=== PATIENT | female | born 1970 | race Caucasian/White ===

== ENCOUNTER 2017-09-07 08:20 | Day surgery (SDC) | payer OTHER ==
[~2017-09-07] VITALS: Ht 165.1 cm; Wt 70.8 kg
[~2017-09-07 08:20] MED LIST: ENSKYCE1 EACH PO; ZYRTEC-D TABLE1 EACH PO
--- NOTE | 2017-09-07 08:20 | NUR ---
PT ARRIVED EARLY REPORTING 03/21 "MIGRAIN" PAIN. MD CONSULTED, MD REFERED THIS RN TO ORCHID HAND. ORCHID HAND AT BEDSIDE ASSESSING PT. ORCHID HAND ORDERS PAIN MEDICATION TO BE GIVEN NOW.
--- NOTE | 2017-09-07 08:30 | NUR ---
PTS BOYFRIEND CALLED DAY SURGERY REPORTING THAT PT HAS "A BAD MIGRAINE" AND ASKING WHAT SHOULD BE DONE. PT ADVISED TO COME IN EARLY TO BE ASSESSED, OR CALL TO CANCIL HER SURGERY.
[2017-09-07] MEDS ORDERED: TYLENOL325 MG PO (08:46)
--- NOTE | 2017-09-07 08:50 | NUR ---
[facility] ARRIVED FROM [facility]. GIVEN ORDERED (SEE MAR). 5 MINUTES LATER PT APPEARS MORE RELAXED AND REPORTS IMPROVING PAIN. BED RAILS UP. FATHER AND BOYFRIEND AT BEDSIDE. PT MAINTAINING O2 SATURATION OF 100% ON ROOM AIR.
--- NOTE | 2017-09-07 10:54 | NUR ---
09/07/17 1054 Nishi Gonzalez 1039-PATIENT ARRIVED TO PACU ON 6L MASK O2 SAT 98% PATIENT NONAROUSABLE ORAL AIRWAY IN PLACE. SR. INCISION AREA SMALL AMT OF DRAINAGE NO DRESSING STITCHES. 1043-PATIENT AROUSING ORAL AIRWAY REMOVED ON 6L MASK O2 SAT 98% 1050-WEANED TO RA O2 SAT 98% REPORTS MIGRAINE GOING AWAY. DENIES PAIN OR NAUSEA.
--- NOTE | 2017-09-07 11:24 | NUR ---
PT RETUREND FROM PACU. PT DENIES PAIN AND NAUSEA. FAMILY AT BEDSIDE. BED RAILS UP, CALL LIGHT WITHIN REACH. PT TOLERATING PO FLUIDS. KENNA GORDON.
[2017-09-07] MEDS ORDERED: NORCO 5-325 TA1 EACH PO (11:39)
[2017-09-07] MEDS ORDERED: MAXALT5 MG PO (11:40)
--- NOTE | 2017-09-07 12:13 | OR ---
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 PROCEDURE: Excision of pilar cyst. ESTIMATED BLOOD LOSS: Minimal. INDICATIONS: rAiel is a 46-year-old female, who at age 4 had fallen and hit her head on one of her bed rails. Then in the last year or 2, she and her hairdresser noticed a swollen area next to the scar. It became raised and swollen. It did grew to the size of a quarter and it finally burst open. All the white cottage cheese-looking material came out. It settled down for a while and of course, is now coming back. It is now about the size of a marble. She asked her primary care provider to look at it. She was then asked to see me as a general surgeon. In the office, Ariel and I were able to locate the pilar cyst. We could see the scar. There are no hair follicles in the skin overlying the cyst. I explained to Ariel these notoriously bleed during dissection, it is very difficult to see the cyst wall. I explained to Ariel it is extremely important to get the entire cyst wall, otherwise they do recur. Also, when they have been incised and drained previously or other next to old scar and so forth, they are very difficult to get out. Blunt dissection in that case is almost always useless. We gently have to use our needle tip cautery. Consequently, we decided to do this over at the hospital in the OR with good lighting and our needle-tip cautery and our nurses to help with exposure and suction. I explained to Ariel the nature of a pilar cyst and the cyst wall and the concept of the sebum. She understands the entire cyst must be removed or they tend to recur. She understands there is risk to the surgery including, but not limited to bleeding, infection, scarring, change in contour of the skin, and recurrent cyst in the same or other locations. She had expressed understanding and wished to proceed. PROCEDURE NOTE: I met with Ariel and her in the preop area. Ariel was able to easily directed us Electronically Signed By: HUGO KIRAN MD 09/07/17 1213 PATIENT NAME: ARIEL MOORE OPERATIVE REPORT DATE OF : 70 PHYSICIAN: HUGO KIRAN MD REPORT #: [id number] REPORT IS CONFIDENTIAL AND NOT TO BE RELEASED WITHOUT AUTHORIZATION [facility] [address], [place] [address] Signed to the pilar cyst on the left posterior parietal scalp. We marked that appropriately. After this, Ariel was taken into our operating room and placed in the supine position under general endotracheal tube anesthesia. She was given preoperative antibiotics along with subcutaneous heparin. SCDs were utilized. After this, the left parietal scalp was prepped and draped in the usual sterile fashion. She has no hair over the cyst and therefore there was no need to shave or cut any of the hair at the time of the surgery. I injected local anesthetic in and around the lesion. A linear incision was made over the lesion very carefully with a #15 blade knife and we immediately encountered the pilar cyst. As is common in this recurrent cyst, the overlying skin is extremely thin, a millimeter or so at most in thickness. It took a few minutes to bluntly dissect both posteriorly and anteriorly. We then had to use the needle-tip cautery very carefully to separate the pilar cyst from the overlying skin on both sides. We then went down and around the pilar cyst and removed the entire cyst and cyst wall with the help of the needle tip cautery. It was passed off the field for pathology department. After this, the wound was irrigated and suctioned out until clear. Her skin was far too thin to use any type of subcuticular stitch. Consequently, we brought the skin edges together with interrupted simple 3-0 nylon suture. We simply left the wound open to air. No dressing, no ointment. After this, Ariel was awakened from her anesthesia, extubated in the OR, and taken to recovery room in stable condition. Ariel tolerated the procedure quite well. Hugo Kiran MD ALB/MODL /[id number] cc: Edgar Sood MD Electronically Signed By: HUGO KIRAN MD 09/07/17 1213 PATIENT NAME: ARIEL MOORE OPERATIVE REPORT DATE OF : 70 PHYSICIAN: HUGO KIRAN MD REPORT #: [id number] REPORT IS CONFIDENTIAL AND NOT TO BE RELEASED WITHOUT AUTHORIZATION
--- NOTE | 2017-09-07 12:40 | NUR ---
PT CONTINUES TO DENY PAIN AND NAUSEA. PT UP TO REST ROOM, VOIDS 900ML WITHOUT DIFFICULTY. PT STEADY ON FEET WITH ONE PERSON STAND BY ASSIST. DISCHARGE INSTRUCTIONS REVIEWED WITH PT AND BOYFRIEND. PT AND BOYFRIEND VERBALIZE UNDERSTANDING OF INSTRUCTIONS. QUESTIONS ASKED AND ANSWERED. PT DRESSES SELF. NEW ICE BAG PROVIDED FOR HOME USE.
== END 2017-09-07 12:40 | disposition home or self-care (01) ==
LOC: DS 08:20
PROVIDERS: Colon & Rectal Surgery
PROC: 0HB0XZZ Excision of Scalp Skin, External Approach (ICD-10-PCS; principal; 2017-09-07 09:45)
DX: L72.0 Epidermal cyst (principal); M41.9 Scoliosis, unspecified; Z79.899 Other long term (current) drug therapy; Z90.89 Acquired absence of other organs; Z98.890 Other specified postprocedural states; Z88.2 Allergy status to sulfonamides
CPT/HCPCS: 00300; J0330; J0690; J1100; J1644; J1885; J2250; J2405; J2704; J3010; J7120